=== PATIENT | female | born 1985 | race Caucasian/White ===

== ENCOUNTER 2018-05-30 16:21 | Emergency (ER) | payer MEDICAID, OTHER ==
[~2018-05-30] VITALS: Ht 152.4 cm; Wt 59.9 kg
[2018-05-30 16:28] VITALS: BP 158/76
--- NOTE | 2018-05-30 16:31 | NUR ---
VSS; AMBULATED TO LOBBY
--- NOTE | 2018-05-30 19:20 | NUR ---
TO ER BED 12
--- NOTE | 2018-05-30 19:20 | NUR ---
PT BIB SELF FOR NECK PAINFUL LUMP ON NECK. PT REPORTS NON-RADIATING THROBING PAIN WITH PALPATION AT 4/10 THAT IS RELIEVED WITH IBUPROFEN. PT HAS HARD MOVABLE MASS VISIBLE ON LEFT ANTERIOR NECK. VSS. ER MD TO SEE PT. WILL CONTINUE TO MONITOR. MEDHX: NONE RX:NONE
[2018-05-30 20:56] VITALS: BP 136/60
--- NOTE | 2018-05-30 20:56 | NUR ---
Patient discharged with v/s stable. Written and verbal after care instructions given and explained. Patient alert, oriented and verbalized understanding of instructions. Ambulatory with steady gait. All questions addressed prior to discharge. ID band removed. Patient advised to follow up with PMD.Opportunity to ask questions provided and answered.
== END 2018-05-30 20:56 | disposition home or self-care (01) ==
LOC: MED 16:21
DX: R59.0 Localized enlarged lymph nodes (principal)
CPT/HCPCS: 81025; 99282

== ENCOUNTER 2020-09-28 13:37 | Emergency (ER) | payer OTHER ==
[~2020-09-28] VITALS: Ht 152.4 cm; Wt 54.4 kg
[2020-09-28 13:57] VITALS: BP 164/90
[2020-09-28] MEDS ORDERED: ACETAMINOPHEN 325 MG TAB PO ONE (14:20)
[2020-09-28] MEDS ORDERED: IBUP-1876 PO (16:04)
[2020-09-28 16:09] VITALS: BP 164/90
== END 2020-09-28 16:10 | disposition home or self-care (01) ==
LOC: MED 13:37
DX: S00.03XA Contusion of scalp, initial encounter (principal); I10 Essential (primary) hypertension; Z79.899 Other long term (current) drug therapy; V89.2XXA Person injured in unspecified motor-vehicle accident, traffic, initial encounter; Y93.89 Activity, other specified; Y92.411 Interstate highway as the place of occurrence of the external cause; Y99.8 Other external cause status
CPT/HCPCS: 70450; 99284

== ENCOUNTER 2021-01-11 20:59 | Observation (INO) | payer OTHER, SELFPAY ==
[~2021-01-11] VITALS: Ht 152.4 cm; Wt 54.4 kg
[~2021-01-11 20:59] MED LIST: ACET-10509 PO; ACET-9527 PO; ATEN25TA7 PO; IBUP-1876 PO; LEVO750T51 PO; METR500T1 PO
[2021-01-11 21:13] VITALS: BP 121/75
--- NOTE | 2021-01-11 21:13 | NUR ---
TO BED AMBULATORY
--- NOTE | 2021-01-11 21:24 | NUR ---
PATIENT BROUGHT TO ER BED 4. REPORTS BLOOD, DRAINAGE AND CLOTS TO INCISION SIGHT ON LOWER ABDOMEN. PATIENT HAD A SBO SURGERY 12/[address] LOUIS HERE AT THIS FACILITY. NO OTHER COMPLAINTS, DENIES PAIN AT THIS TIME. ONSET OF SYMPTOMS WAS AROUND 2000 TONIGHT.
[2021-01-11] MEDS ORDERED: ONDANSETRON 4 MG/2 ML VIAL IVP ONE (22:15)
[2021-01-11] MEDS ORDERED: MORPHINE SULFATE 4 MG/ML SYR IVP ONE (22:15)
[2021-01-11] MEDS ORDERED: NACL 0.9% 1,000 ML IV ONE (22:15)
[2021-01-11 22:47] LABS: BASOPHILS # (AUTO) 0.1 K/uL (0.00-0.22); BASOPHILS % (AUTO) 0.7 % (0.0-2.0); EOSINOPHILS # (AUTO) 0.1 K/uL (0-0.4); EOSINOPHILS % (AUTO) 0.6 % (0.0-4.0); HEMATOCRIT 31.6 % (36-48); HEMOGLOBIN 10.5 g/dL (12.0-16.0); LYMPHOCYTES # (AUTO) 3.7 K/uL (2.5-16.5); LYMPHOCYTES % (AUTO) 21.5 % (20.5-51.1); MEAN CORPUSCULAR HEMOGLOBIN 30 pg (27-31); MEAN CORPUSCULAR HGB CONC 33 g/dL (33-37); MEAN CORPUSCULAR VOLUME 90.9 fL (80-94); MONOCYTES # (AUTO) 0.8 K/uL (0.8-1.0); MONOCYTES % (AUTO) 4.7 % (1.7-9.3); NEUTROPHILS # (AUTO) 12.4 K/uL (1.8-7.7); NEUTROPHILS % (AUTO) 72.5 % (42.2-75.2); PLATELET COUNT (AUTO) 616 K/uL (140-450); RED BLOOD CELL COUNT(AUTO) 3.48 MIL/uL (4.20-5.40); RED CELL DISTRIBUTION WIDTH 13.8 % (11.6-13.7); WHITE BLOOD COUNT (AUTO) 17.1 K/uL (4.8-10.8)
[2021-01-11] MEDS ORDERED: PIPERACILLIN/TAZOBACTAM 3.375 GM in DEXTROSE 5% 50 ML IV SCH (23:10)
[2021-01-11 23:12] LABS: ALBUMIN 2.8 g/dL (3.4-5.0); ANION GAP 10.3 (8-16); CARBON DIOXIDE 27.4 mmol/L (21-32); CREATININE 0.7 mg/dL (0.6-1.3); POTASSIUM 3.7 mmol/L (3.5-5.1); TOTAL BILIRUBIN 0.1 mg/dL (0.0-1.0)
--- NOTE | 2021-01-11 23:32 | NUR ---
IV INITIATED TO LEFT AC 20G FOR CTA PROCEDURE
[2021-01-12] MEDS ORDERED: VANCOMYCIN 1,000 MG in DEXTROSE 5% 250 ML IV ONE (00:10)
--- NOTE | 2021-01-12 00:54 | NUR ---
0054- DR LOUIS PAGED FOR DOCTOR CONSULT
[2021-01-12] MEDS ORDERED: VANCOMYCIN 1,000 MG VIAL ONE (00:57)
[2021-01-12] MEDS ORDERED: PIPERACILLIN/TAZOBACTAM 3.375 GM VIAL IV ONE (01:52)
[2021-01-12] MEDS ORDERED: VANCOMYCIN PER PHARMACY MC PRN (02:05)
[2021-01-12] MEDS ORDERED: MAGNESIUM OXIDE 400 MG TAB PO PRN (02:05)
[2021-01-12] MEDS ORDERED: POTASSIUM CHLORIDE 10 MEQ TABER PO PRN ×3 (02:05→13:52)
[2021-01-12] MEDS ORDERED: ONDANSETRON 4 MG/2 ML VIAL IVP PRN (02:05)
[2021-01-12] MEDS ORDERED: KCL 20 MEQ/WATER INJ PREMIX 200 ML IV PRN (02:05)
[2021-01-12] MEDS ORDERED: MAG SULF 2000 MG/WATER PREMIX 50 ML IV PRN (02:05)
[2021-01-12] MEDS ORDERED: diphenhydrAMINE 50 MG/ML VIAL IVP ONE (03:15)
--- NOTE | 2021-01-12 03:17 | NUR ---
PATIENT STATES SOME ITVHINESS AND IS RED AND ITCHY FOLLOWING ANTIBIOTIC ADMNSITRATION. ER MD AT BEDSIDE TO EXAMINE, ORDER 50MG BENADRYL
--- NOTE | 2021-01-12 05:26 | NUR ---
[facility] CALLED AND ASSIGNED PT ROOM 104B
[2021-01-12] MEDS: PIPERACILLIN/TAZOBACTAM 3.375 GM in DEXTROSE 5% 50 ML IV SCH ×3 (06:00→17:37)
--- NOTE | 2021-01-12 07:11 | NUR ---
RECEIVED REPORT FROM PIERO TANG TRAVEL NURSE. TRANSFER OF CARE AT THIS TIME.
--- NOTE | 2021-01-12 07:15 | NUR ---
PT SITTING UP IN BED, HOB ELEVATED. VSS WILL CONTINUE TO MONITOR.
--- NOTE | 2021-01-12 07:49 | NUR ---
GAVE REPORT TO PIERO GREGORY FOR PENDING ADMISSION. ETA 10MINUTES.
--- NOTE | 2021-01-12 07:50 | NUR ---
RECEIVED PATIENT REPORT FROM ER NURSE. AWAITING FOR PATIENT TO ARRIVE TO THE UNIT
--- NOTE | 2021-01-12 07:57 | NUR ---
PATIENT HAS BEEN SCREENED AND CATEGORIZED MODERATE NUTRITION RISK. PATIENT WILL BE SEEN WITHIN 3-5 DAYS OF ADMISSION. 01/14/2021-01/16/[address] Addendum: 01/12/21 at [address] PATIENT HAS BEEN RESCREENED AND RE-CATEGORIZED HIGH NUTRITION RISK. PATIENT WILL BE SEEN WITHIN 1-2 DAYS OF ADMISSION. FNS CONSULT RECEIVED FOR WOUNDS/PRESSURE ULCERS. 01/12/2021-01/13/[address]
[2021-01-12 08:00] VITALS: BP 133/86
--- NOTE | 2021-01-12 08:00 | NUR ---
RECEIVED PATIENT FROM ER NURSE VIA WHEELCHAIR. PT IS AOX4, ABLE TO MAKE NEEDS KNOWN. RESPIRATIONS EVEN AND UNLABORED. NO DISTRESS NOTED ON ROOM AIR. SKIN IS WARM, DRY, AND NON-INTACT. IV SITE ON RH 22G SALINE LOCKED. INTACT AND PATENT. NOTED CLOSED SURGICAL INCISION WITH SUTURES IN PLACE ON ABDOMEN. NOTED LIGHT CLEAR DRAINAGE. COVERED WITH DRESSING. DENIES PAIN. ABDOMEN SOFT, FLAT, NON-DISTENDED. BOWEL SOUNDS ACTIVE IN ALL QUADRANTS. CONTINENT AND ABLE TO AMBULATE W/O ASSISTANCE. PLAN OF CARE DISCUSSED. SAFETY PRECAUTIONS IN PLACE. CALL LIGHT WITHIN REACH. WILL CONTINUE TO MONITOR
--- NOTE | 2021-01-12 08:02 | NUR ---
Patient will be admitted to care of DR. HALL. Admited to MED SURG. Will go to room 104B. Belongings list completed. Report to PIERO GREGORY.
[2021-01-12 12:00] VITALS: BP 130/77
--- NOTE | 2021-01-12 12:18 | NUR ---
DR. HALL AT PATIENT'S BEDSIDE DISCUSSING PLAN OF CARE.
[2021-01-12] MEDS: VANCOMYCIN 750 MG in DEXTROSE 5% 250 ML IV SCH (13:05)
[2021-01-12] MEDS ORDERED: MORPHINE SULFATE 4 MG/ML SYR IVP PRN (13:20)
--- NOTE | 2021-01-12 13:32 | NUR ---
/PT COMPLAINED OF ABD PAIN 12/07. ADMINISTERED PRN PAIN MEDICATIONS PER MD ORDERED.
--- NOTE | 2021-01-12 14:13 | NUR ---
ALL SCHEDULED MEDICATIONS GIVEN. PT IS STABLE. NO DISTRESS NOTED. WILL CONTINUE TO MONITOR.
[2021-01-12 14:22] LABS: BASOPHILS % (AUTO) 0.3 % (0.0-2.0); EOSINOPHILS # (AUTO) 0.1 K/uL (0-0.4); EOSINOPHILS % (AUTO) 0.8 % (0.0-4.0); HEMATOCRIT 30.3 % (36-48); LYMPHOCYTES % (AUTO) 18.4 % (20.5-51.1); MEAN CORPUSCULAR HEMOGLOBIN 30 pg (27-31); MEAN CORPUSCULAR HGB CONC 33 g/dL (33-37); MEAN CORPUSCULAR VOLUME 91.3 fL (80-94); MONOCYTES # (AUTO) 0.3 K/uL (0.8-1.0); MONOCYTES % (AUTO) 2.7 % (1.7-9.3); NEUTROPHILS # (AUTO) 8.5 K/uL (1.8-7.7); NEUTROPHILS % (AUTO) 77.8 % (42.2-75.2); PLATELET COUNT (AUTO) 571 K/uL (140-450); RED BLOOD CELL COUNT(AUTO) 3.32 MIL/uL (4.20-5.40); RED CELL DISTRIBUTION WIDTH 13.9 % (11.6-13.7); WHITE BLOOD COUNT (AUTO) 10.9 K/uL (4.8-10.8)
--- NOTE | 2021-01-12 14:59 | NUR ---
12/08/20 RD INITIAL ASSESSMENT COMPLETED PLEASE REFER TO NUTRITION ASSESSMENT UNDER CARE ACTIVITY FOR ESTIMATED NUTRITIONAL NEEDS. RD RECOMMENDATIONS: 1.RECOMMEND CHANGING PT TO LOW SODIUM DIET DUE HX OF HTN. -PT ALSO FOLLOWS LOW NA DIET AT HOME. 2. LOW NA DIET EDUCATION AND GENERAL HEALTHY EATING DIET EDUCATION PROVIDED TO PT. 3. RD TO FOLLOW UP 3-5 DAYS; MODERATE RISK. DELANO BECKFORD, RD
[2021-01-12 16:00] VITALS: BP 126/72
--- NOTE | 2021-01-12 17:50 | NUR ---
OBTAINED WOUND CULTURE. SENT TO LABS
--- NOTE | 2021-01-12 18:10 | NUR ---
ALL SCHEDULED MEDS GIVEN. PT IS STABLE. NO DISTRESS NOTED. WILL CONTINUE TO MONITOR.
--- NOTE | 2021-01-12 19:15 | NUR ---
ENDORSED TO DRUM DYEING MACHINE OPERATOR NURSE FOR CONTINUITY OF CARE. PT IS STABLE.
--- NOTE | 2021-01-12 19:16 | NUR ---
RECEIVED REPORT FROM AM SHIFT NURSE FOR CONTINUITY OF CARE. PT IS STABLE.
[2021-01-12 20:00] VITALS: BP 120/79
--- NOTE | 2021-01-12 20:20 | NUR ---
PT AWAKE, LYING IN BED. A&OX4. PT IS AMBULATORY INDEPENDENTLY. ON RA WITH BREATHING UNLABORED. SKIN IS WARM, DRY AND NON-INTACT. NOTED SURGICAL INCISION WITH LITTLE BLOOD ON THE OUTSIDE DRESSING. ABD IS SOFT, FLAT AND NOT DISTENDED. DENIES PAIN AT THIS TIME. IV INTACT ON RIGHT HAND 22 GAUGE SALINE LOCKED. PLAN OF CARE DISCUSSED. CALL LIGHT WITHIN REACH. ALL SAFETY MEASURES IN PLACE. WILL CONTINUE TO MONITOR.
[2021-01-12] MEDS: ACETAMINOPHEN 325 MG TAB PO PRN (22:25)
--- NOTE | 2021-01-12 22:25 | NUR ---
ABDOMINAL WOUND HAS SEROSANGUINEOUS DRAINAGE, ASSESSMENT DONE AND NOTED THE MEASUREMENT FOLLOWS: 2.5 CM DEEP, 1.5 CM WIDTH, 6 CM LENGTH. WOUND WAS CLEANED AND DRESSING APPLIED. PT HAS MILD PAIN AND REQUESTED TYLENOL FOR PAIN. TYLENOL 650MG TAB GIVEN ORDERED. ALL SAFETY MEASURES IN PLACE. WILL CONTINUE TO MONITOR.
[2021-01-13] VITALS: BP 121/63
--- NOTE | 2021-01-13 00:10 | NUR ---
CHECKED ON PT, AWAKE SITTING IN BED. DENIES ANY PAIN. NO S/S OF DISTRESS. VITAL SIGNS TAKEN AND STABLE. ALL SAFETY PRECAUTIONS IN PLACE. WILL CONTINUE TO MONITOR.
[2021-01-13] MEDS: PIPERACILLIN/TAZOBACTAM 3.375 GM in DEXTROSE 5% 50 ML IV SCH ×3 (00:25→12:20)
[2021-01-13] MEDS: VANCOMYCIN 750 MG in DEXTROSE 5% 250 ML IV SCH ×2 (01:47→12:47)
--- NOTE | 2021-01-13 02:15 | NUR ---
MADE ROUNDS ON PT, PT IS SLEEPING. NO S/S OF DISTRESS. ALL SAFETY MEASURES IN PLACE. WILL CONTINUE TO MONITOR.
[2021-01-13 04:00] VITALS: BP 119/79
--- NOTE | 2021-01-13 04:20 | NUR ---
PT AWAKE IN BED. NO COMPLAIN AT THIS TIME. NO S/S OF DISTRESS. VITAL SIGNS TAKEN AND STABLE. CALL LIGHT WITHIN REACH. ALL SAFETY PRECAUTIONS IN PLACE.
--- NOTE | 2021-01-13 06:25 | NUR ---
PT AWAKE LYING IN BED. DENIES ANY PAIN. BREATHING NON LABORED. CALL LIGHT WITHIN REACH. ALL SAFETY MEASURES IN PLACE.
[2021-01-13 07:18] LABS: BASOPHILS # (AUTO) 0.1 K/uL (0.00-0.22); BASOPHILS % (AUTO) 0.6 % (0.0-2.0); EOSINOPHILS # (AUTO) 0.2 K/uL (0-0.4); EOSINOPHILS % (AUTO) 2.4 % (0.0-4.0); HEMOGLOBIN 10.2 g/dL (12.0-16.0); LYMPHOCYTES # (AUTO) 2.8 K/uL (2.5-16.5); LYMPHOCYTES % (AUTO) 30.9 % (20.5-51.1); MEAN CORPUSCULAR HEMOGLOBIN 31 pg (27-31); MEAN CORPUSCULAR HGB CONC 34 g/dL (33-37); MEAN CORPUSCULAR VOLUME 91.2 fL (80-94); MONOCYTES # (AUTO) 0.6 K/uL (0.8-1.0); MONOCYTES % (AUTO) 6.4 % (1.7-9.3); NEUTROPHILS # (AUTO) 5.4 K/uL (1.8-7.7); NEUTROPHILS % (AUTO) 59.7 % (42.2-75.2); PLATELET COUNT (AUTO) 602 K/uL (140-450); RED BLOOD CELL COUNT(AUTO) 3.29 MIL/uL (4.20-5.40); RED CELL DISTRIBUTION WIDTH 13.5 % (11.6-13.7)
--- NOTE | 2021-01-13 07:20 | NUR ---
ENDORSED TO AM SHIFT NURSE FOR CONTINUITY OF CARE. PT IS STABLE.
[2021-01-13 07:42] LABS: ALBUMIN 2.5 g/dL (3.4-5.0); CARBON DIOXIDE 26.8 mmol/L (21-32); CREATININE 0.7 mg/dL (0.6-1.3); MAGNESIUM 2.2 mg/dL (1.8-2.4); POTASSIUM 3.8 mmol/L (3.5-5.1); TOTAL BILIRUBIN 0.2 mg/dL (0.0-1.0)
[2021-01-13 08:00] VITALS: BP 123/75
--- NOTE | 2021-01-13 08:00 | NUR ---
RECEIVED REPORT FROM PRESS MAINTAINER FOR CONTINUITY OF CARE. PATIENT ALERT AWAKE ORIENTED X4, NOT IN ANY DISTRESS NOTED. WITH HEPLOCK ON THE RIGHT HAND AND LEFT AC DRY AND INTACT. ON TELE SHOWS SR. DENIES PAIN AT THIS TIME. WITH ABDOMINAL WOUND DRESSING DRY AND INTACT. CALL LIGHT WITHIN REACH. NEEDS ATTENDED. WILL CONTINUE TO MONITOR.
[2021-01-13] MEDS ORDERED: atenoloL 25 MG TAB PO SCH (09:00)
[2021-01-13] MEDS: ACETAMINOPHEN 325 MG TAB PO PRN (10:52)
[2021-01-13 12:00] VITALS: BP 119/76
[2021-01-13] MEDS ORDERED: GAUZE TP SCH (13:00)
--- NOTE | 2021-01-13 13:00 | NUR ---
VANCO HANGED AND INFUSING WELL. DRESSING CHANGED. WILL CONTINUE TO MONITOR
--- NOTE | 2021-01-13 14:06 | NUR ---
SEEN BY DR. LOPEZ AND HE SAID PATIENT CAN DC FROM HIS STANDPOINT AND FOLLOW UP WITH DR. LOUIS.
[2021-01-13] MEDS ORDERED: DOXY-690 PO (14:55)
[2021-01-13 16:00] VITALS: BP 121/73
--- NOTE | 2021-01-13 17:30 | NUR ---
DRESSING CHANGED AND TEACH PATIENT HOW TO CHANGE DRESSING VERBALIZED UNDERSTANDING ON HOW TO CLEANSE THE WOUND, EXTRA DRESSING GIVEN. INSTRUCTED PATIENT TO CALL IF SHE HAS QUESTION. VISITING NURSE ORDERED BY DR. HALL AND WILL FOLLOW UP WITH STUNT PERSON TOMORROW.
--- NOTE | 2021-01-13 17:45 | NUR ---
IV REMOVED AND TELE BOX REMOVED, DC VIA WHEELCHAIR WITH DC INSTRUCTION AND PRESCRIPTION GIVEN AND VERBALIZED UNDERSTANDING. IN STABLE CONDITION.
--- NOTE | 2021-01-14 08:50 | NUR ---
WOUND CONSULT NOT DONE PT. DISCHARGED. PT. SEEN BY DR. LOPEZ.
--- NOTE | 2021-01-14 11:28 | NUR ---
DC PLANNING: FAXED TO [facility], [facility] , AND [facility]. CM TO FOLLOW
--- NOTE | 2021-01-21 11:04 | NUR ---
LATE ENTRY- VANCOMYCIN DISCONTINUED AT 0802.
== END 2021-01-13 17:35 | disposition home or self-care (01) ==
LOC: MED 20:59 → MTU 01-12 02:08
PROVIDERS: ADMIT Internal Medicine; ATTEND Internal Medicine
DX: T81.43XA Infection following a procedure, organ and space surgical site, initial encounter (principal); L03.311 Cellulitis of abdominal wall; I10 Essential (primary) hypertension; Z90.49 Acquired absence of other specified parts of digestive tract; Z79.899 Other long term (current) drug therapy
CPT/HCPCS: 36415; 74177; 76705; 80053; 80202; 81025; 83605; 83690; 83735; 85025; 86886; 86900; 86901; 87040; 87070; 87075; 87081; 87205; 93005; 96361; 96365; 96366; 96368; 96375; 99285; G0378; J1200; J2270; J2543; J3370; J7060; Q0092; Q9967